=== PATIENT | female | born 1995 | race Caucasian/White ===

== ENCOUNTER 2019-10-22 11:03 | Emergency (ER) | payer MEDICAID ==
--- NOTE | 2019-10-22 11:40 | EDM.PDOCBH ---
ED HPI GENERAL MEDICAL PROBLEM - General Chief Complaint: Drug or Alcohol Abuse Stated Complaint: OD Time Seen by Provider: 10/22/19 11:38 Source of Information: Reports: Patient History Limitations: Reports: No Limitations - History of Present Illness INITIAL COMMENTS - FREE TEXT/NARRATIVE: 24-year-old female who reports that she used about 1 g of methamphetamines IV and approximate 4 AM today. She reports that she has had fast heart rate and feelings of chest tightness and feeling very anxious since that time. She also feels that she has been "in and out of it" and she presents here because "she does not want to " she denies any suicidal thoughts or plan at present. She does report she has had suicidal thoughts in the past. She has been having shouldn't and increased anxiety recently area she has had no nausea or vomiting. She does have pain in her mid back. She rates the pain as about a 5/ 10. Her will problem, she feels, is that she is just very anxious and cannot calm herself down. He states that she has been using IV methamphetamine for about the past 3-4 years. She does want some help to try to stop using methamphetamines. She is quite anxious but she is cooperative with us. There are no other associated signs or symptoms. There are no other modifying factors. She does report that she is a type I diabetic and she has not been following her sugars closely and cannot really tell me time that she took her glucose. Onset: Today (4 AM) Duration: Constant Location: Reports: Head, Chest, Back Quality: Reports: Other (Tightness in her back and in her chest) Severity: Moderate Improves with: Reports: Rest Worsens with: Reports: Other (Activity), Movement Context: Reports: Other (As above) Associated Symptoms: Reports: Chest Pain, Headaches, Loss of Appetite, Weakness Treatments [employer]PERATOR: Reports: Other (see below) (Nothing) - Related Data Allergies Allergy/AdvReac Type Severity Reaction Status Date / Time amoxicillin Allergy Hives Verified 07/19/19 20:19 Penicillins Allergy Other Verified 07/19/19 20:19 Home Meds: Home Meds Gabapentin [Neurontin] 600 mg PO TID 10/22/19 [History] Insulin Aspart [NovoLOG] 1 unit SQ ASDIRECTED 10/22/19 [History] Insulin Glarg,Human.Rec.Analog [Lantus Solostar] 30 units SQ QPM 10/22/19 [ History] Levothyroxine 150 mcg PO DAILY 10/22/19 [History] Mirtazapine 30 mg PO QPM 10/22/19 [History] Prazosin [Minpress] 1 mg PO QPM 10/22/19 [History] Sertraline [Zoloft] 25 mg PO BID 10/22/19 [History] valACYclovir HCl [valACYclovir] 1 gm PO TID 10/22/19 [History] Past Medical History Psychiatric History: Reports: Addiction (Methamphetamine abuse, IV drug use), Anxiety, Depression, PTSD, Suicide Attempt, Suicidal Ideation Endocrine/Metabolic History: Reports: Diabetes, Type I, Hypothyroidism Amount (Units): 1 Glucose Above mg/dl: 150 Correction Bolus/Sliding Scale Comments: also does carb counting - Infectious Disease History Infectious Disease History: Reports: Herpes - Past Surgical History HEENT Surgical History: Reports: Adenoidectomy, Oral Surgery, Tonsillectomy Female Surgical History: Reports: Section Dermatological Surgical History: Reports: Skin Graft, Other (See Below) (I&D of breast abscess) Social & Family History - Tobacco Use Smoking Status *Q: Current Every Day Smoker - Alcohol Use Alcohol Use History: No - Recreational Drug Use Recreational Drug Use: Yes Drug Use in Last 12 Months: Yes Recreational Drug Type: Reports: Methamphetamine - Living Situation & Occupation Living situation: Reports: Single ED ROS GENERAL - Review of Systems Review Of Systems: See Below Constitutional: Reports: Malaise HEENT: Reports: No Symptoms Respiratory: Reports: Cough (Mild cough and she feels as a smoker's cough) Cardiovascular: Reports: Chest Pain, Lightheadedness GI/Abdominal: Reports: No Symptoms : Reports: Dysuria, Frequency, Urgency Musculoskeletal: Reports: Back Pain Skin: Reports: No Symptoms Neurological: Reports: No Symptoms Psychiatric: Reports: Anxiety, Depression. Denies: Homicidal Ideation, Suicidal Ideation Hematologic/Lymphatic: Reports: No Symptoms Immunologic: Reports: No Symptoms ED EXAM, BEHAVIORAL HEALTH - Physical Exam Exam: See Below Exam Limited By: No Limitations General Appearance: Alert, WD/WN, Anxious Eye Exam: Bilateral Eye: Bleeding, EOMI, PERRL Ears: Normal External Exam, Hearing Grossly Normal Nose: Normal Inspection, Normal Mucosa, No Blood Throat/Mouth: Normal Inspection, Normal Lips, Normal Oropharynx, Normal Voice, No Airway Compromise Head: Atraumatic, Normocephalic Neck: Normal Inspection, Supple, Non-Tender Respiratory/Chest: No Respiratory Distress, Lungs Clear, Normal Breath Sounds, No Accessory Muscle Use, Chest Non-Tender Cardiovascular: Normal Peripheral Pulses, No Murmur, Tachycardia GI/Abdominal: Normal Bowel Sounds, Soft, Non-Tender, No Mass Back Exam: Normal Inspection, Full Range of Motion Extremities: Normal Inspection, Normal Range of Motion, Non-Tender, No Pedal Edema, Normal Capillary Refill Neurological: Alert, Normal Mood/Affect, CN II-XII Intact, Normal Cognition, No Motor/Sensory Deficits, Oriented x 3 Psychiatric: Alert, Oriented, Depressed Mood, Restless, Tearful. No: Homicidal Thoughts, Suicidal Plan, Suicidal Thoughts Skin Exam: Warm, Dry, Normal color, No rash EKG INTERPRETATION EKG Date: 10/22/19 Time: 13:16 Rhythm: Other (Sinus tachycardia) Rate (Beats/Min): 109 Bastian: Normal P-Wave: Present QRS: Normal ST-T: Normal QT: Normal Comparison: NA - No Prior EKG COURSE, BEHAVIORAL HEALTH COMP - Course Vital Signs: Last Vital Signs Temp 36.5 C 10/22/19 12:09 Pulse 93 10/22/19 16:32 Resp 18 10/22/19 16:32 BP 138/77 10/22/19 16:32 Pulse Ox 97 10/22/19 16:32 Orders, Labs, Meds: Active Orders 24 hr Category Date Time Status EKG Documentation Completion [RC] ASDIRECTED Care 10/22/19 11:56 Active Sodium Chloride 0.9% [Saline Flush] Med 10/22/19 11:54 Active 10 ml FLUSH ASDIRECTED PRN Peripheral IV Insertion Adult [OM.PC] Routine Oth 10/22/19 11:54 Ordered EKG 12 Lead [EK] Routine Ther 10/22/19 11:54 Ordered Medication Orders Sodium Chloride (Saline Flush) 10 ml FLUSH ASDIRECTED PRN PRN Reason: Keep Vein Open Laboratory Tests 10/22/19 10/22/19 10/22/19 Range/Units 12:45 12:45 12:45 WBC (4.5-12.0) X10-3/uL RBC (3.23-5.20) x10(6)uL Hgb (11.5-15.5) g/dL Hct (30.0-51.3) % MCV (80-96) fL MCH (27.7-33.6) pg MCHC (32.2-35.4) g/dL RDW (11.5-15.5) % Plt Count (125-369) X10(3)uL MPV (7.4-10.4) fL Neut % (Auto) (46-82) % Lymph % (Auto) (13-37) % Hardee % (Auto) (4-12) % Eos % (Auto) (1.0-5.0) % Baso % (Auto) (0-2) % Neut # (Auto) (1.6-8.3) # Lymph # (Auto) (0.6-5.0) # Hardee # (Auto) (0.0-1.3) # Eos # (Auto) (0.0-0.8) # Baso # (Auto) (0.0-0.2) # Sodium (135-145) mmol/L Potassium (3.5-5.3) mmol/L Chloride (100-110) mmol/L Carbon Dioxide (21-32) mmol/L BUN (7-18) mg/dL Creatinine (0.55-1.02) mg/dL Est Cr Clr Drug Dosing Estimated GFR (MDRD) (>60) BUN/Creatinine Ratio (9-20) Glucose (80-116) mg/dL Calcium (8.6-10.2) mg/dL Magnesium (1.8-2.5) mg/dL Total Bilirubin (0.1-1.3) mg/dL AST (5-25) IU/L ALT (12-36) U/L Alkaline Phosphatase (56-112) IU/L Troponin I (4.0-60.3) pg/mL Total Protein (6.0-8.0) g/dL Albumin (3.5-5.2) g/dL Globulin g/dL Albumin/Globulin Ratio TSH, Ultra Sensitive (0.36-3.74) IU/mL Urine Color Yellow (YELLOW) Urine Appearance Slightly cloudy (CLEAR) Urine pH 7.0 H (5.0-6.5) Ur Specific [place] 1.015 (1.010-1.025) Urine Protein Negative (NEGATIVE) mg/dL Urine Glucose (UA) >1000 H (NORMAL) mg/dL Urine Ketones Negative (NEGATIVE) mg/dL Urine Occult Blood Moderate H (NEGATIVE) Urine Nitrite Negative (NEGATIVE) Urine Bilirubin Negative (NEGATIVE) Urine Urobilinogen Normal (NEGATIVE) mg/dL Ur Leukocyte Esterase Negative (NEGATIVE) Urine RBC 0-5 (0-5) Urine WBC 0-5 (0-5) Ur Squamous Epith Cells Moderate H (NS,R,O) Urine Bacteria Few H (NS) Urine HCG, Qual Negative (NEGATIVE) Urine Opiates Screen Negative (NEGATIVE) Ur Oxycodone Screen Negative (NEGATIVE) Ur Propoxyphene Screen Negative (NEGATIVE) Ur Barbituates Screen Negative (NEGATIVE) Ur Tricyclics Screen Negative (NEGATIVE) Ur Phencyclidine Scrn Negative (NEGATIVE) Ur Amphetamine Screen Positive H (NEGATIVE) Urine MDMA Screen Negative (NEGATIVE) U Benzodiazepines Scrn Negative (NEGATIVE) U Cocaine Metab Screen Negative (NEGATIVE) U Marijuana (THC) Screen Negative (NEGATIVE) Ethyl Alcohol (<0.03) % 10/22/19 10/22/19 10/22/19 Range/Units 15:45 15:45 15:45 WBC 8.2 (4.5-12.0) X10-3/uL RBC 4.38 (3.23-5.20) x10(6)uL Hgb 12.5 (11.5-15.5) g/dL Hct 37.5 (30.0-51.3) % MCV 85.6 (80-96) fL MCH 28.5 (27.7-33.6) pg MCHC 33.3 (32.2-35.4) g/dL RDW 14.7 (11.5-15.5) % Plt Count 339 (125-369) X10(3)uL MPV 8.0 (7.4-10.4) fL Neut % (Auto) 58.7 (46-82) % Lymph % (Auto) 35.9 (13-37) % Hardee % (Auto) 4.9 (4-12) % Eos % (Auto) 0 L (1.0-5.0) % Baso % (Auto) 1 (0-2) % Neut # (Auto) 4.8 (1.6-8.3) # Lymph # (Auto) 3.0 (0.6-5.0) # Hardee # (Auto) 0.4 (0.0-1.3) # Eos # (Auto) 0.0 (0.0-0.8) # Baso # (Auto) 0.0 (0.0-0.2) # Sodium 141 (135-145) mmol/L Potassium 3.7 (3.5-5.3) mmol/L Chloride 104 (100-110) mmol/L Carbon Dioxide 25 (21-32) mmol/L BUN 14 (7-18) mg/dL Creatinine 0.7 (0.55-1.02) mg/dL Est Cr Clr Drug Dosing TNP Estimated GFR (MDRD) > 60 (>60) BUN/Creatinine Ratio 20.0 (9-20) Glucose 248 H (80-116) mg/dL Calcium 8.4 L (8.6-10.2) mg/dL Magnesium 1.4 L (1.8-2.5) mg/dL Total Bilirubin 0.3 (0.1-1.3) mg/dL AST 16 (5-25) IU/L ALT 35 (12-36) U/L Alkaline Phosphatase 154 H (56-112) IU/L Troponin I < 4.0 L (4.0-60.3) pg/mL Total Protein 6.9 (6.0-8.0) g/dL Albumin 3.3 L (3.5-5.2) g/dL Globulin 3.6 g/dL Albumin/Globulin Ratio 0.9 TSH, Ultra Sensitive 4.89 H (0.36-3.74) IU/mL Urine Color (YELLOW) Urine Appearance (CLEAR) Urine pH (5.0-6.5) Ur Specific [place] (1.010-1.025) Urine Protein (NEGATIVE) mg/dL Urine Glucose (UA) (NORMAL) mg/dL Urine Ketones (NEGATIVE) mg/dL Urine Occult Blood (NEGATIVE) Urine Nitrite (NEGATIVE) Urine Bilirubin (NEGATIVE) Urine Urobilinogen (NEGATIVE) mg/dL Ur Leukocyte Esterase (NEGATIVE) Urine RBC (0-5) Urine WBC (0-5) Ur Squamous Epith Cells (NS,R,O) Urine Bacteria (NS) Urine HCG, Qual (NEGATIVE) Urine Opiates Screen (NEGATIVE) Ur Oxycodone Screen (NEGATIVE) Ur Propoxyphene Screen (NEGATIVE) Ur Barbituates Screen (NEGATIVE) Ur Tricyclics Screen (NEGATIVE) Ur Phencyclidine Scrn (NEGATIVE) Ur Amphetamine Screen (NEGATIVE) Urine MDMA Screen (NEGATIVE) U Benzodiazepines Scrn (NEGATIVE) U Cocaine Metab Screen (NEGATIVE) U Marijuana (THC) Screen (NEGATIVE) Ethyl Alcohol < 0.03 (<0.03) % Medications Generic Name Dose Route Start Last Admin Trade Name Freq PRN Reason Stop Dose Admin Sodium Chloride 10 ml 10/22/19 11:54 Saline Flush FLUSH ASDIRECTED PRN Keep Vein Open Discontinued Medications Generic Name Dose Route Start Last Admin Trade Name Freq PRN Reason Stop Dose Admin Sodium Chloride 1,000 mls @ 999 mls/hr 10/22/19 11:58 10/22/19 14:32 Normal Saline IV 10/22/19 12:58 999 mls/hr .BOLUS ONE Administration Lorazepam 1 mg 10/22/19 13:28 10/22/19 13:41 Ativan IM 10/22/19 13:29 1 mg ONETIME ONE Administration Lorazepam 1 mg 10/22/19 14:10 10/22/19 14:17 Ativan IM 10/22/19 14:11 1 mg ONETIME ONE Administration Re-Assessment/Re-Exam: 10/22/2019, 1:30 p.m.: Multiple attempts to get IV and blood have been unsuccessful. The patient is quite anxious and hypersensitive related to her recent methamphetamine use. Her urine test is negative. I'll give the patient Ativan 1 mg IM. 10/22/2019, 3 PM: The patient had required another milligram of Ativan IM and the patient had an IV established and blood is being obtained now. Patient is much more calm now with heart rate in the 80-90 range. She continues to tell me that she has no suicidal ideation or intent or plan. She is cooperative. Her EKG was reassuringly normal. I will await laboratory results. 10/22/2019, 4:35 PM: Patient's blood tests were reassuring. Her glucose was 248. Her troponin was negative. With the normal EKG and with the troponin being negative now 9-10 hours after onset of the patient's chest tightness, I feel [place] has been ruled out. She once again tells me that she has no suicidal thoughts, plan or intent. She is awake, alert and appropriate. She is oriented 4. She that she has plan to follow-up with her psychiatrist and to try to move closer to her family and get into a treatment program. She is also completely symptom- free at this point. The patient is stable for discharge at this point. Departure - Departure Time of Disposition: 16:55 Disposition: Home, Self-Care 01 Condition: Good (Improved) Clinical Impression: Methamphetamine abuse, Methamphetamine intoxication, Anxiety and depression - Discharge Information Instructions: Stimulant Use Disorder-Methamphetamines, Chemical Dependency Referrals: Vickie Johnson PA-C [Primary Care Provider] - Forms: ED Department Discharge Additional Instructions: Your blood tests were reassuring. Her glucose was 248. Your heart enzyme test was normal/negative and your EKG was normal. You should avoid any illicit drug use. Drink plenty of fluids. You should follow-up with your psychiatrist/ therapist this week. Back to the emergency department for recurrent chest pain, shortness of breath, feelings of wanting to harm yourself or other people, vomiting or any other concerning sign or symptom. Sepsis Event Note - Focused Exam Vital Signs: Vital Signs Temp Pulse Resp BP Pulse Ox 10/22/19 16:32 93 18 138/77 97 10/22/19 15:52 18 127/73 100 10/22/19 12:09 36.5 C 127 H 20 115/100 H 100 Date Exam was Performed: 10/22/19 Time Exam was Performed: 16:46 - My Orders Last 24 Hours: My Active Orders 10/22/19 11:54 Sodium Chloride 0.9% [Saline Flush] 10 ml FLUSH ASDIRECTED PRN Peripheral IV Insertion Adult [OM.PC] Routine EKG 12 Lead [EK] Routine 10/22/19 11:56 EKG Documentation Completion [RC] ASDIRECTED - Assessment/Plan Last 24 Hours: My Active Orders 10/22/19 11:54 Sodium Chloride 0.9% [Saline Flush] 10 ml FLUSH ASDIRECTED PRN Peripheral IV Insertion Adult [OM.PC] Routine EKG 12 Lead [EK] Routine 10/22/19 11:56 EKG Documentation Completion [RC] ASDIRECTED
[2019-10-22] MEDS ORDERED: Sodium Chloride 0.9% 10 ML Syringe FLUSH PRN (11:54)
[2019-10-22] MEDS ORDERED: Sodium Chloride 0.9% 1,000 ML IV ONE (11:58)
[2019-10-22] MEDS ORDERED: LORazepam 2 MG/ML SDV IM ONE ×2 (13:28→14:10)
== END 2019-10-22 17:09 | disposition home or self-care (01) ==
LOC: FB.ED 11:03
DX: F15.129 Other stimulant abuse with intoxication, unspecified (principal); F41.9 Anxiety disorder, unspecified; F32.9 Major depressive disorder, single episode, unspecified; E10.9 Type 1 diabetes mellitus without complications; E03.9 Hypothyroidism, unspecified; F17.200 Nicotine dependence, unspecified, uncomplicated; Z88.0 Allergy status to penicillin; Z79.4 Long term (current) use of insulin; Z79.899 Other long term (current) drug therapy; Z79.890 Hormone replacement therapy
CPT/HCPCS: 36415; 80053; 80305-QW; 80307; 81001; 81025; 83735; 84443; 84484; 85025; 93005; 96360; 96372; 99284-25; J2060; J7030

== ENCOUNTER 2020-11-16 12:55 | Emergency (ER) | payer MEDICAID ==
--- NOTE | 2020-11-16 14:56 | EDM.PDOC ---
ED HPI GENERAL MEDICAL PROBLEM - General Stated Complaint: LEFT LEG INJURY Time Seen by Provider: 11/16/20 14:30 Source of Information: Reports: Patient History Limitations: Reports: No Limitations - History of Present Illness INITIAL COMMENTS - FREE TEXT/NARRATIVE: c/o leg pain pt slipped on kitchen floor yesterday, "did the splits", has been ambulating, soreness of behind her L knee, took APAP Treatments RETURN TO SERVICE INSPECTOR: Reports: Acetaminophen Left Leg Pain Score (Numeric/FACES): 4 - Related Data Allergies Allergy/AdvReac Type Severity Reaction Status Date / Time amoxicillin Allergy Hives Verified 07/19/19 20:19 Penicillins Allergy Other Verified 07/19/19 20:19 Home Meds: Home Meds Gabapentin [Neurontin] 600 mg PO TID 10/22/19 [History] Insulin Aspart [NovoLOG] 1 unit SQ ASDIRECTED 10/22/19 [History] Insulin Glarg,Human.Rec.Analog [Lantus Solostar] 35 units SQ QPM 10/22/19 [History] Levothyroxine 150 mcg PO DAILY 10/22/19 [History] Mirtazapine 30 mg PO QPM 10/22/19 [History] Prazosin [Minpress] 1 mg PO QPM 10/22/19 [History] Past Medical History Psychiatric History: Reports: Addiction (Methamphetamine abuse, IV drug use), Anxiety, Depression, PTSD, Suicide Attempt, Suicidal Ideation Endocrine/Metabolic History: Reports: Diabetes, Type I, Hypothyroidism - Infectious Disease History Infectious Disease History: Reports: Herpes - Past Surgical History HEENT Surgical History: Reports: Adenoidectomy, Oral Surgery, Tonsillectomy Female Surgical History: Reports: Section Dermatological Surgical History: Reports: Skin Graft, Other (See Below) (I&D of breast abscess) Social & Family History - Caffeine Use Caffeine Use: Reports: Coffee - Living Situation & Occupation Living situation: Reports: Single Review of Systems - Review of Systems Review Of Systems: See Below Constitutional: Reports: No Symptoms Eyes: Reports: No Symptoms Ears: Reports: No Symptoms Nose: Reports: No Symptoms Mouth/Throat: Reports: No Symptoms Respiratory: Reports: No Symptoms Cardiovascular: Reports: No Symptoms GI/Abdominal: Reports: No Symptoms Genitourinary: Reports: No Symptoms Musculoskeletal: Reports: Leg Pain Skin: Reports: No Symptoms Neurological: Reports: No Symptoms Psychiatric: Reports: No Symptoms ED EXAM, GENERAL - Physical Exam Exam: See Below Exam Limited By: No Limitations General Appearance: Alert, WD/WN, No Apparent Distress Respiratory/Chest: No Respiratory Distress Cardiovascular: Regular Rate, Rhythm Extremities: Normal Inspection, Normal Range of Motion, Non-Tender, Other (no Kwan's cyst L knee, no effusion, patella nontender, slight tender at MCL, L fo ot/ankle wnl, flex/ext L hip wnl, no SI tender, no l-spine tender) Course - Vital Signs Last Recorded V/S: Last Vital Signs Temp 36.9 C 11/16/20 13:05 Pulse 100 11/16/20 13:05 Resp 18 11/16/20 13:05 BP 137/87 11/16/20 13:05 Pulse Ox 100 11/16/20 13:05 - Orders/Labs/Meds Labs: Laboratory Tests 11/16/20 Range/Units 13:49 POC Glucose 286 H (74-100) mg/dL Meds: Medications Discontinued Medications Generic Name Dose Route Start Last Admin Trade Name Lynne PRN Reason Stop Dose Admin Ketorolac Tromethamine 60 mg 11/16/20 15:04 11/16/20 15:20 Toradol IM 11/16/20 15:05 60 mg ONETIME ONE Administration - Re-Assessments/Exams Free Text/Narrative Re-Assessment/Exam: 11/16/20 15:35 no bony injury exam, by hx and exam has a Grade I sprain of L knee without complication, use of Gilbert wraps (6" x 2), ice and ibuprofen/apap reviewed Departure - Departure Time of Disposition: 14:47 Disposition: Home, Self-Care 01 Condition: Good Clinical Impression: Left knee sprain - Discharge Information *PRESCRIPTION DRUG MONITORING PROGRAM REVIEWED*: Not Applicable *COPY OF PRESCRIPTION DRUG MONITORING REPORT IN PATIENT EVELYN: Not Applicable Instructions: Knee Sprain, Adult Referrals: PCP,None [Primary Care Provider] - Forms: ED Department Discharge Additional Instructions: Take ibuprofen 200 mg 4 tabs and acetaminophen 500 mg 2 tabs 3 times a day for 7 days. Use ice for 10 minutes 4 times a day for 2 days. Use Gilbert wraps for one week. Limit walking. Avoid reinjury. See your doctor in 3-4 days for additional evaluation and recommendations. Sepsis Event Note (ED) - Evaluation Sepsis Screening Result: No Definite Risk - Focused Exam Vital Signs: Vital Signs Temp Pulse Resp BP Pulse Ox 11/16/20 13:05 36.9 C 100 18 137/87 100
[2020-11-16] MEDS ORDERED: Ketorolac 60 MG/2 ML SDV IM ONE (15:04)
== END 2020-11-16 15:35 | disposition home or self-care (01) ==
LOC: FB.ED 12:55
DX: S83.92XA Sprain of unspecified site of left knee, initial encounter (principal); E10.9 Type 1 diabetes mellitus without complications; E03.9 Hypothyroidism, unspecified; Z88.0 Allergy status to penicillin; Z79.899 Other long term (current) drug therapy; X50.9XXA Other and unspecified overexertion or strenuous movements or postures, initial encounter
CPT/HCPCS: 82962; 96372; 99283; J1885; 99282